=== PATIENT | male | born 1965 | race Caucasian/White ===

== ENCOUNTER 2017-12-10 16:27 | Emergency (ER) | payer BC ==
[~2017-12-10] VITALS: Ht 172.7 cm; Wt 79.4 kg
== END 2017-12-10 19:19 | disposition home or self-care (01) ==
LOC: ER 16:27
DX: S00.83XA Contusion of other part of head, initial encounter (principal); W22.8XXA Striking against or struck by other objects, initial encounter; Y93.89 Activity, other specified; Y92.89 Other specified places as the place of occurrence of the external cause; Y99.8 Other external cause status